=== PATIENT | male | born 1985 | race African-American/Black ===

== ENCOUNTER 2022-04-27 21:30 | Emergency (ER) | payer OTHER ==
[2022-04-27 21:47] VITALS: BP 143/82; PULSE 120; TEMP 98.1; BMI 41.0
[2022-04-27] MEDS ORDERED: ACETAMINOPHEN 500 MG TABLET (FP) PO ONE (23:11)
[2022-04-27] MEDS ORDERED: ACETAMINOPHEN 325 MG TABLET (FP) PO ONE (23:11)
[2022-04-27] MEDS ORDERED: DIPHTH,PERTUSS(ACELL),TET 0.5 ML DISP.SYRIN IM ONE ×2 (23:11→23:25)
[2022-04-27] MEDS ORDERED: ACETAMINOPHEN 325 MG TABLET (FP) ONE (23:25)
== END 2022-04-28 00:15 | disposition home or self-care (01) ==
LOC: JERFT 21:30 → JER 21:30
PROC: 3E0234Z Introduction of Serum, Toxoid and Vaccine into Muscle, Percutaneous Approach (ICD-10-PCS; principal; 2022-04-27)
DX: M25.561 Pain in right knee (principal); M25.562 Pain in left knee; V43.62XA Car passenger injured in collision with other type car in traffic accident, initial encounter
CPT/HCPCS: 73562-TC-LT-FY; 73562-TC-RT-FY; 90715; 99284-25